=== PATIENT | female | born 1990 | race Caucasian/White ===

== ENCOUNTER 2018-04-04 20:14 | Emergency (ER) | payer OTHER ==
[~2018-04-04] VITALS: Ht 172.7 cm; Wt 115.3 kg
[2018-04-04 20:19] VITALS: BP 190/98; PULSE 96; RESP 19; Ht 172.7 cm; Wt 115.3 kg
[2018-04-04] MEDS ORDERED: LIDOCAINE 1% (MDV) 10 ML INJ INJ STA (20:55)
[2018-04-04] MEDS ORDERED: LORAZEPAM 1 MG TAB PO ONE (21:00)
[2018-04-04] MEDS ORDERED: DIPHTH/TET/ACEL PERTUSS (ADULT) 0.5 ML VIAL IM* ONE (21:00)
[2018-04-04] MEDS ORDERED: LIDOCAINE 1% (MPF) 5 ML VIAL INJ STA (21:13)
[2018-04-04] MEDS ORDERED: CEPH-443 PO (21:48)
--- NOTE | 2018-04-04 21:51 | ERD ---
ER Documentation Chief Complaint Chief Complaint RT WRIST LACERATION W/ CERAMIC BOWL WHILE WASHING DISHES HPI This patient is a 28-year-old female who was cleaning dishes today and the cera geoffrey does actually broke and sliced her right wrist. She is unsure of her last tetanus vaccination. No numbness or tingling. Unsure about retained foreign body. ROS All systems reviewed and are negative except as per history of present illness. Medications Home Meds Active Scripts Cephalexin* (Keflex*) 500 Mg Capsule, 500 MG PO QID for 5 Days, CAP Prov:LEELA PYLE PA-C 04/04/18 Allergies Allergies: Coded Allergies: No Known Allergy (Unverified , 04/04/18) PMhx/Soc Medical and Surgical Hx: pt denies Medical Hx, pt denies Surgical Hx Hx Alcohol Use: No Hx Substance Use: No Hx Tobacco Use: No Smoking Status: Never smoker FmHx Family History: No diabetes Physical Exam Vitals Vital Signs Date Temp Pulse Resp B/P (MAP) Pulse Ox O2 O2 Flow FiO2 Time Delivery Rate 04/04/18 98.9 96 19 190/98 100 20:19 (128) Physical Exam Const: No acute distress Head: Atraumatic Eyes: Normal Conjunctiva ENT: Normal External Ears, Nose and Mouth. Neck: Full range of motion. No meningismus. Resp: Clear to auscultation bilaterally Cardio: Regular rate and rhythm, no murmurs Right wrist: Ulnar aspect there is a checkmark shaped laceration approximately 3-4 cm in length, no evidence of foreign body Results 24 hrs Current Medications Medications Dose Sig/Rubi Start Time Status Last (Trade) Ordered Route PRN Stop Time Admin Dose Reason Admin Lorazepam 1 mg ONCE ONCE 04/04/18 DC 04/04/18 (Ativan) PO 21:00 21:05 04/04/18 21:01 Diphtheria/ 0.5 ml ONCE ONCE 04/04/18 DC 04/04/18 Tetanus/Acell IM* 21:00 21:06 Pertussis 04/04/18 21:01 (Adacel) Lidocaine 10 ml ONCE STAT 04/04/18 DC HCl INJ 20:55 (Lidocaine 04/04/18 20:57 1% (Mdv) 10 ml) Lidocaine 10 ml ONCE STAT 04/04/18 DC (Xylocaine INJ 21:13 1% (Mpf)) 04/04/18 21:14 Procedures/MDM Tetanus vaccination given. X-rays negative for foreign body. The skin edges of the laceration were infiltrated with 1% lidocaine . The laceration was irrigated with copious amounts of normal saline. The wound was prepped with Betadine. On examination under direct light, there was no foreign body seen. The laceration was repaired with simple interrupted sutures. After repair, there was no continuing bleeding on repair and there did not appear to be any complication related to repair. The patient tolerated the procedure well and the wound was appropriately dressed and bandaged. I recommended the patient return in 2 days for a wound check and 7-10 days for removal of sutures. Patient counseled regarding my diagnostic impression and care plan. Prior to discharge all questions answered. Pt agrees with treatment plan and understands strict return precautions. Pt is instructed to follow up with primary care provider within 24-48 hours. Precautionary instructions provided including instructions to return to the ER if not improving or for any worsening or changing symptoms or concerns. Departure Diagnosis: Primary Impression: Laceration Condition: Stable Patient Instructions: Suture Care Additional Instructions: Follow up with your physician to remove the stitches:For Face wounds 5-7 days.For Elsewhere on the body 7-10 days. Follow up in 2 days in your clinic for wound check. LEELA PYLE PA-C Apr 04, 2018 21:51
== END 2018-04-04 21:56 | disposition home or self-care (01) ==
LOC: FTE 20:14
DX: S61.511A Laceration without foreign body of right wrist, initial encounter (principal); W26.8XXA Contact with other sharp object(s), not elsewhere classified, initial encounter; Y92.9 Unspecified place or not applicable; Z23 Encounter for immunization
CPT/HCPCS: 12002; 73110; 90471; 90715; Z7502; Z7610

== ENCOUNTER 2018-04-18 07:37 | Emergency (ER) | payer OTHER ==
[~2018-04-18] VITALS: Ht 172.7 cm; Wt 115.2 kg
[~2018-04-18 07:37] MED LIST: CEPH-443 PO
[2018-04-18 08:01] VITALS: BP 163/112; PULSE 123; RESP 18; Ht 172.7 cm; Wt 115.2 kg
[2018-04-18] MEDS ORDERED: EPINEPHrine 1 MG INJ IM STA (08:47)
[2018-04-18] MEDS ORDERED: FAMOTIDINE 20 MG TAB PO STA (08:47)
[2018-04-18] MEDS ORDERED: DIPHENHYDRAMINE 50 MG CAP PO STA (08:47)
[2018-04-18] MEDS ORDERED: predniSONE 20 MG TAB PO STA (08:47)
[2018-04-18] MEDS ORDERED: BEN50 PO (08:51)
[2018-04-18] MEDS ORDERED: PRED20TA PO (08:51)
--- NOTE | 2018-04-18 11:38 | ERD ---
ER Documentation Chief Complaint Chief Complaint PT C/O GENERALIZED RASH, HIVES, ITCHING ALL OVER FOR 2 WEEKS. NO SOB. HPI Patient is a 28-year-old female with no medical problems who presents with a rash. She has had a rash for the past 2 weeks. She said that it is everywhere on her body. She does not know what started 2 weeks ago. She has no new foods, soaps, lotions, or medications. She has never had this before. She tried Rachael this morning. She has no trouble with breathing or speaking. She has no throat or tongue swelling. She has appointment with her doctor at [facility] on April 24. ROS All systems reviewed and are negative except as per history of present illness. Medications Home Meds Active Scripts Diphenhydramine Hcl* (Benadryl*) 50 Mg Cap, 50 MG PO Q6H PRN for ITCHING/RASH, #30 CAP Prov:ADAMS HERRMANN MD 04/18/18 Prednisone* (Prednisone*) 20 Mg Tab, 60 MG PO DAILY for 4 Days, TAB Prov:ADAMS HERRMANN MD 04/18/18 Cephalexin* (Keflex*) 500 Mg Capsule, 500 MG PO QID for 5 Days, CAP Prov:LEELA PYLE PA-C 04/04/18 Allergies Allergies: Coded Allergies: No Known Allergy (Unverified , 04/04/18) PMhx/Soc Medical and Surgical Hx: pt denies Medical Hx, pt denies Surgical Hx Hx Alcohol Use: No Hx Substance Use: No Hx Tobacco Use: No Smoking Status: Never smoker FmHx Family History: diabetes Physical Exam Vitals Vital Signs Date Temp Pulse Resp B/P (MAP) Pulse Ox O2 O2 Flow FiO2 Time Delivery Rate 04/18/18 97.2 123 18 163/112 100 08:01 (129) Physical Exam Const: No acute distress Head: Atraumatic Eyes: Normal Conjunctiva ENT: Normal External Ears, Nose and Mouth. No tongue or oropharynx swelling Neck: Full range of motion. No meningismus. No stridor over the neck Resp: Clear to auscultation bilaterally Cardio: Regular rate and rhythm, no murmurs Abd: Soft, non tender, non distended. Normal bowel sounds Skin: Diffuse urticaria which blanches Back: No midline or flank tenderness Ext: No cyanosis, or edema Neur: Awake and alert Psych: Normal Mood and Affect Results 24 hrs Current Medications Medications Dose Sig/Rubi Start Time Status Last (Trade) Ordered Route PRN Stop Time Admin Dose Reason Admin 50 mg ONCE STAT 04/18/18 DC 04/18/18 Diphenhydrami PO 08:47 09:06 ne HCl 04/18/18 08:48 (Benadryl) Epinephrine 0.3 mg ONCE STAT 04/18/18 DC 04/18/18 IM 08:47 09:06 (EPINEPHrine) 04/18/18 08:48 Famotidine 20 mg ONCE STAT 04/18/18 DC 04/18/18 (Pepcid) PO 08:47 09:06 04/18/18 08:48 Prednisone 60 mg ONCE STAT 04/18/18 DC 04/18/18 (Prednisone) PO 08:47 09:06 04/18/18 08:48 Procedures/MDM Patient is a 28-year-old female who presents with significant allergic reaction and urticaria. The patient will be treated with epinephrine, Benadryl, Pepcid, and prednisone. I will give a prescription for 4 more days of prednisone and Benadryl. The patient can return for any worsening symptoms. It is unclear at this point what triggered the reaction. She should follow-up with her primary doctor. She can return for any worsening symptoms. Critical Care: Time: 35 minutes excluding all billable procedures. Treatments/Evaluations: Close monitoring and treatment of unstable vital signs, cardiorespiratory, and neurologic status, while maintaining tight balance of fluid, respiratory, and cardiac interventions. Departure Diagnosis: Primary Impression: Urticaria Additional Impression: Rash Condition: Fair Patient Instructions: Self-Care for Skin Rashes, Hives Referrals: Your doctor Additional Instructions: Call your primary care doctor TOMORROW for an appointment during the next 1-2 days.See the doctor sooner or return here if your condition worsens before your appointment time. ADAMS HERRMANN MD Apr 18, 2018 11:38
== END 2018-04-18 09:25 | disposition home or self-care (01) ==
LOC: FTE 07:37
DX: L50.9 Urticaria, unspecified (principal)
CPT/HCPCS: 96372; J0171; J7512; Z7502; Z7610